=== PATIENT | female | born 1975 | race Caucasian/White ===

== ENCOUNTER 2019-03-02 08:49 | Emergency (ER) | payer OTHER ==
[2019-03-02 09:08] VITALS: BP 121/79
--- NOTE | 2019-03-02 10:16 | UC ---
Laceration HPI - HPI Summary HPI Summary: cut right middle finger on clean knife this morning. laceration is 4 cm long, superficial, bleeding is controlled/. UTD on tetanus - History Of Current Complaint Chief Complaint: UCLaceration Stated Complaint: RIGHT MIDDLE FINGER LAC Time Seen by Provider: 03/02/19 10:02 Hx Obtained From: Patient Arnie Last Menstrual Period: 01/2019 Laceration Location: Finger Mechanism Of Injury: Sharp Trauma Onset/Duration: Sudden Onset Severity: Mild Pain Intensity: 0 - Allergies/Home Medications Allergies/Adverse Reactions: Allergies Allergy/AdvReac Type Severity Reaction Status Date / Time No Known Allergies Allergy Verified 03/02/19 09:05 Home Medications: Home Medications NK [No Home Medications Reported] 03/02/19 [History Confirmed 03/02/19] PMH/Surg Hx/FS Hx/Imm Hx Previously Healthy: Yes - Surgical History Surgical History: Yes Surgery Procedure, Year, and Place: tonsillectomy - Family History Known Family History: Positive: Hypertension - Social History Alcohol Use: None Substance Use Type: None Smoking Status (MU): Never Smoked Tobacco Review of Systems All Other Systems Reviewed And Are Negative: Yes Constitutional: Positive: Negative Skin: Positive: Other - laceration Eyes: Positive: Negative ENT: Positive: Negative Respiratory: Positive: Negative Cardiovascular: Positive: Negative Gastrointestinal: Positive: Negative Genitourinary: Positive: Negative Motor: Positive: Negative Neurovascular: Positive: Negative Musculoskeletal: Positive: Negative Neurological: Positive: Negative Psychological: Positive: Negative Is Patient Immunocompromised?: No Physical Exam Triage Information Reviewed: Yes Appearance: Well-Appearing, Well-Nourished, Pain Distress Vital Signs: Initial Vital Signs Temp 97.6 F 03/02/19 09:06 Pulse 90 03/02/19 09:06 Resp 17 03/02/19 09:06 BP 121/79 03/02/19 09:06 Pulse Ox 100 03/02/19 09:06 Vital Signs Reviewed: Yes Eye Exam: Normal ENT Exam: Normal Dental Exam: Normal Neck exam: Normal Respiratory Exam: Normal Cardiovascular Exam: Normal Abdominal Exam: Normal Bowel Sounds: Positive: Present Musculoskeletal Exam: Normal Neurological Exam: Normal Psychological Exam: Normal Skin: Positive: Other - 4 cm simple laceration of the mccann aspect of right middle finger Laceration Repair - Laceration Repair 1 Description: Linear : No Repair Necessary Laceration Size After Repair: Length (cm) - 4 Modified For Repair: No Cleansing Completed Via Routine Prep: Yes Irrigation With Pressure Irrigation Device: Yes Closure Material: Skin Adhesive, SteriStrips Closure Method: Single Layer Suture Of: Skin Laceration Course/Dx - Course/Dx Course Of Treatment: hx obtained, exam performed ,meds reviewed, wound cleansed, glued, steri strips applied and finger splint applied - Differential Dx - Laceration/Wound Differental Diagnoses: Laceration, Tendon Laceration - Diagnosis Provider Diagnosis: Laceration of right middle finger Discharge - Sign-Out/Discharge Documenting (check all that apply): Patient Departure All imaging exams completed and their final reports reviewed: No Studies - Discharge Plan Condition: Stable Disposition: HOME Patient Education Materials: Laceration (DC), Skin Adhesive Care (ED) Referrals: No Primary Care Phys,NOPCP [Primary Care Provider] - Additional Instructions: 1. keep it clean and dry and splinted for 2 days 2. watch for signs of infection and follow up if necessary. - Billing Disposition and Condition Condition: STABLE Disposition: Home
== END 2019-03-02 10:22 | disposition home or self-care (01) ==
LOC: UCCORT 08:49
DX: S61.212A Laceration without foreign body of right middle finger without damage to nail, initial encounter (principal); W26.0XXA Contact with knife, initial encounter; Y92.9 Unspecified place or not applicable
CPT/HCPCS: 12001; 12002; 99201; G0463